=== PATIENT | female | born 1990 | race Caucasian/White ===

== ENCOUNTER 2022-04-07 11:22 | Day surgery (SDC) | payer OTHER ==
[~2022-04-07] VITALS: Ht 180.3 cm; Wt 116.3 kg
[2022-04-07] MEDS ORDERED: CITALOPRAM HBR40 M8 (11:48)
--- NOTE | 2022-04-07 12:54 | NUR ---
04/07/22 1254 Jennifer Gaspar PILLOW UNDER HEAD, ARMS SECURED ON PADDED ARM BOARDS, LEFT HIP BUMP
--- NOTE | 2022-04-07 14:39 | NUR ---
04/07/22 9295 KATIUSKA BROWN FENTANYL 25MCG GIVEN NOW FOR PAIN 03/07. BOYFRIEND AT SIDE OF PATIENT. PT VERY TALKATIVE, EATING AND DRINKING W/O DIFFICULTY.
== END 2022-04-07 15:05 | disposition home or self-care (01) ==
LOC: ORSCSDS 11:22
PROVIDERS: Podiatrist Foot & Ankle Surgery
PROC: 0QSP04Z Reposition Left Metatarsal with Internal Fixation Device, Open Approach (ICD-10-PCS; principal; 2022-04-07 12:30)
DX: S92.352A Displaced fracture of fifth metatarsal bone, left foot, initial encounter for closed fracture (principal); K21.9 Gastro-esophageal reflux disease without esophagitis; F32.A Depression, unspecified; Z79.899 Other long term (current) drug therapy
CPT/HCPCS: A9270; C1713; J0171; J0690; J1100; J2250; J2405; J2704; J3010; J7120

== ENCOUNTER 2023-03-06 06:14 | Day surgery (SDC) | payer OTHER ==
[~2023-03-06] VITALS: Ht 180.3 cm; Wt 122.1 kg
[~2023-03-06 06:14] MED LIST: CITALOPRAM HBR40 M8; CLIMARA1 EACH PO; IBUP400 PO; PROM25 PO; Percocet 5-3251 EACH PO; SIME80CH PO
[2023-03-06 08:43] VITALS: BP 118/78
--- NOTE | 2023-03-06 09:18 | NUR ---
03/06/23 0918 KATIUSKA BROWN PT HAVING PAIN 5/10 WHEN IN SDU. PT WAS MEDICATED WITH FENTANYL PER FELICE. PERCOCET 5/325MG GIVEN NOW FOR PAIN 2 1/2 OUT 10.
== END 2023-03-06 09:45 | disposition home or self-care (01) ==
LOC: ORSCSDS 06:14
PROVIDERS: Podiatrist Foot & Ankle Surgery
PROC: 0QPP04Z Removal of Internal Fixation Device from Left Metatarsal, Open Approach (ICD-10-PCS; principal; 2023-03-06 07:30)
DX: T84.84XA Pain due to internal orthopedic prosthetic devices, implants and grafts, initial encounter (principal); E66.9 Obesity, unspecified; Z68.37 Body mass index [BMI] 37.0-37.9, adult
CPT/HCPCS: A9270; J0171; J0690; J1100; J2250; J2405; J2704; J2795; J3010; J7120